=== PATIENT | female | born 1960 | race Caucasian/White ===

== ENCOUNTER 2016-07-12 08:29 | Emergency (ER) | payer MEDICAID, OTHER ==
[~2016-07-12] VITALS: Wt 69.0 kg
[~2016-07-12 08:29] MED LIST: CYCL-319 PO; IBUP800T25 PO
[2016-07-12] MEDS ORDERED: KETOROLAC 30 MG INJ IM STA (08:48)
--- NOTE | 2016-07-12 08:53 | ERD ---
ER Documentation Chief Complaint Date/Time DATE: 07/12/16 TIME: 08:50 Chief Complaint LOW BACK PAIN FOR THE PAST MONTH GETTING WORSE TODAY. HPI This is a 56-year-old female who presents the emergency department today complaining of back pain for the past month. Patient states she had back pain in the past a long time ago. States that she did go to physical therapy at one point and thinks that she may have had a problem at L4. States that she took Advil for the pain with no improvement in symptoms. States that the pain is so bad that she is having a hard time walking currently. Days of the pain also comes around to the front of her stomach into her groin area on both sides. Denies any fevers or chills, loss of bowel or bladder control. ROS All systems reviewed and are negative except as per history of present illness. Medications Home Meds Active Scripts Cyclobenzaprine Hcl* (Cyclobenzaprine Hcl*) 10 Mg Tablet, 5 MG PO TID for 5 Days , TAB Prov:MEGAN,ELIJAH C 02/03/15 Ibuprofen* (Motrin*) 800 Mg Tab, 800 MG PO Q6, #30 TAB Prov:MEGAN,ELIJAH C 02/03/15 Allergies Allergies: Coded Allergies: No Known Allergy (Unverified , 06/04/12) PMhx/Soc History of Surgery: No Anesthesia Reaction: No Hx Neurological Disorder: No Hx Respiratory Disorders: No Hx Cardiac Disorders: Yes (HTN) Hx Psychiatric Problems: No Hx Miscellaneous Medical Probl: No Hx Alcohol Use: No Hx Substance Use: No Hx Tobacco Use: No Physical Exam Vitals Vital Signs Date Time Temp Pulse Resp B/P Pulse Ox O2 Delivery O2 Flow Rate FiO2 07/12/16 08:31 98.6 88 20 126/65 98 Physical Exam Const: Mild distress Head: Atraumatic Eyes: Normal Conjunctiva ENT: Normal External Ears, Nose and Mouth. Neck: Full range of motion..~ No meningismus. Resp: Clear to auscultation bilaterally Cardio: Regular rate and rhythm, no murmurs Abd: Soft, non tender, non distended. Normal bowel sounds Skin: No petechiae or rashes Back: Lumbar spine midline tenderness and bilateral paraspinal tenderness. Positive straight leg raise right side. Pulses 2+. Distal neurovascularly intact Ext: No cyanosis, or edema Neur: Awake and alert Psych: Normal Mood and Affect Results 24 hrs Laboratory Tests Test 07/12/16 09:27 Bedside Urine pH (LAB) 5.5 Bedside Urine Protein (LAB) Negative Bedside Urine Glucose (UA) Negative Bedside Urine Ketones (LAB) Negative Bedside Urine Blood 1+ Bedside Urine Nitrite (LAB) Negative Bedside Urine Leukocyte Esterase (L Trace Current Medications Medications (Trade) Dose Ordered Sig/Cesario Route PRN Reason Start Time Stop Time Status Last Admin Dose Admin Ketorolac Tromethamine (Toradol) 30 mg ONCE STAT IM 07/12/16 08:48 07/12/16 08:50 DC 07/12/16 09:02 Prednisone (Prednisone) 60 mg ONCE ONCE PO 07/12/16 09:00 07/12/16 09:01 DC 07/12/16 09:01 DIAGNOSTIC IMAGING REPORT Patient: LUZ CHACON : 1960 Age: 56 Sex: F MR #: [id number] DOS: 07/12/16 0000 Ordering MD: SCOTTIE STERN PA-C Location: [facility] Room/Bed: PROCEDURE: XR Lumbar Spine. CLINICAL INDICATION: Lumbar spine pain. TECHNIQUE: AP, lateral, and cone-down lateral view of the lumbar spine were obtained. COMPARISON: No prior studies are available for comparison. FINDINGS: The alignment of the lumbar spine is within normal limits. There are anterior osteophytes from L2-S1 with mild narrowing of the intervertebral disc spaces at L3-4 and L5-S1. There are mild associated discogenic endplate changes at these levels. The vertebral body heights and marrow density are normal in appearance. There is moderate facet spondylosis at L5-S1 with suggestion of neural foraminal narrowing at this level. The remaining neural foramina appear patent. The paraspinal soft tissues unremarkable. There is no evidence of fracture. IMPRESSION: 1. Mild degenerative disc disease at L3-4 and L5-S1. 2. Moderate facet spondylosis at L5-S1 with suggestion of neural foraminal narrowing at this level. RPTAT: DD .Mustapha Mullins MD, MD Date Time Electronically viewed and signed by .Mustapha Mullins MD, on 07/12/2016 10: 05 .S/ CC: SCOTTIE STERN PA-C DIAGNOSTIC IMAGING REPORT Patient: LUZ CHACON : 1960 Age: 56 Sex: F MR #: [id number] DOS: 07/12/16 1120 Ordering MD: SHAISTA YING PA-C Location: [facility] Room/Bed: PROCEDURE: CT Abdomen and Pelvis without contrast. CLINICAL INDICATION: Pain for 1 month. TECHNIQUE: Multiple contiguous axial CT images of the abdomen and pelvis were obtained without the administration of intravenous contrast. Coronal and sagittal reconstructions were also performed. CTDIvol (mGy): 15.96; Total Exam DLP (mGy-cm): 959.61. One or more of the following dose reduction techniques were utilized: - Automated exposure control. - Adjustment of the mA and/or kV according to patient size. - Use of iterative reconstruction technique. COMPARISON: None. FINDINGS: Limited imaging of the lower thorax is unremarkable. The liver and spleen are homogeneous in density. The gallbladder, pancreas and adrenal glands are unremarkable. The kidneys are symmetric in size. There are no nephroureteral stones. There is no hydronephrosis or abnormal perinephric inflammation. There is a small simple cyst of the left kidney. The abdominal aorta is normal in caliber. There is no periaortic / retroperitoneal lymphadenopathy. The stomach and small and large intestines are unremarkable aside from scattered few diverticula within the distal colon. The appendix is not visualized. There are no focal inflammatory changes of the mesentery. There is no mesenteric lymphadenopathy. There is no ascites. The bladder is distended. The uterus is enlarged and globular in shape measuring approximately 9.6 x 7.4 x 9.0 cm. There is no free pelvic fluid. There is no pelvic sidewall or inguinal lymphadenopathy. Mild degenerative changes of the lumbar spine are observed. Body wall soft tissues are unremarkable. IMPRESSION: No evidence of abdominopelvic mass, lymphadenopathy or acute inflammatory pathology. Enlarged globular shaped uterus which can be seen with leiomyomatous disease or adenomyosis. Mild diverticulosis of the distal colon. No evidence of diverticulitis. RPTAT: HLST .Uzma Tavares MD, Date Time Electronically viewed and signed by .Uzma Tavares MD, on 07/12/2016 12:09 .T/ CC: SHAISTA YING PA-C Procedures/MDM This 56-year-old female who presents the emergency department today complaining of low back pain for the past month and worse since last night. Patient had a history of back problems in 2005. Given that patient is unable to walk and she does have some midline tenderness I did obtain images Per the radiology report images of the lumbar spine show mild degenerative disc disease at L3 and L4 and L5 and S1. There is moderate facet spondylosis L5 and S1 with suggestion of a neural foraminal narrowing at this level. There are anterior osteophytes from L2-S1. There is no evidence of fracture. Soft tissues are unremarkable This is likely the source of the patient's back pain.. Patient is afebrile and otherwise well-appearing. She has no loss of bowel or bladder control. Low suspicion for abscess or cauda equina. Patient given Toradol, prednisone here in the emergency department she does have some pain down her leg and this is likely sciatic related pain. Patient reported significant improvement in pain. I did also obtain a UA that showed trace leukocyte esterase and 1+ hematuria. Patient reported that she had one day of her menstrual cycle in June however she is not having her menses regularly. Given this information I spoke to Dr. Robles about the patient and he has recommended a CT scan of her abdomen and pelvis to rule out kidney stone. CT abdomen pelvis noncontrast shows no evidence of abdominal pelvic mass, lymphadenopathy or acute inflammatory pathology. There is an enlarged uterus which can be seen with adenomyosis or leiomyoma ptosis disease. There is mild diverticulosis of the distal colon there is no evidence of diverticulitis. There is no pelvic free fluid. There is no ascites. There are no nephroureteral stones. There is no hydronephrosis or abnormal perinephric inflammation. Patient symptoms at this time is consistent with back pain and abdominal pain. Patient has abdominal pain of uncertain etiology however it may be due to fibroids. Patient given a prescription for tramadol, Naprosyn, short course of prednisone for home. She is instructed to follow-up with primary care doctor was given information for community clinics as she will likely need referral to orthopedics and college specialist and [employer].. At this time the patient is stable for discharge and outpatient management. Patient should follow up with their PCP in the next 1-2 days. They may return to the emergency department sooner for any persistent or worsening of symptoms. Patient understood and agreed with the plan. SCOTTIE STERN PA-C July 12, 2016 08:53
[2016-07-12] MEDS ORDERED: predniSONE 20 MG TAB PO ONE (09:00)
[2016-07-12 09:25] LABS: URINE BLOOD (Dip) POC 1+ (NEGATIVE)
--- NOTE | 2016-07-12 10:05 | RADRPT ---
PROCEDURE: XR Lumbar Spine. CLINICAL INDICATION: Lumbar spine pain. TECHNIQUE: AP, lateral, and cone-down lateral view of the lumbar spine were obtained. COMPARISON: No prior studies are available for comparison. FINDINGS: The alignment of the lumbar spine is within normal limits. There are anterior osteophytes from L2-S 1 with mild narrowing of the intervertebral disc spaces at L3-4 and L5-S1. There are mild associate d discogenic endplate changes at these levels. The vertebral body heights and marrow density are nor mal in appearance. There is moderate facet spondylosis at L5-S1 with suggestion of neural foraminal narrowing at this level. The remaining neural foramina appear patent. The paraspinal soft tissues unremarkable. There is no evidence of fracture. IMPRESSION: 1. Mild degenerative disc disease at L3-4 and L5-S1. 2. Moderate facet spondylosis at L5-S1 with suggestion of neural foraminal narrowing at this level. RPTAT: DD .Mustapha Mullins MD, MD Date Time Electronically viewed and signed by .Mustapha Mullins MD, on 07/12/2016 10:05 .S/
--- NOTE | 2016-07-12 12:10 | RADRPT ---
PROCEDURE: CT Abdomen and Pelvis without contrast. CLINICAL INDICATION: Pain for 1 month. TECHNIQUE: Multiple contiguous axial CT images of the abdomen and pelvis were obtained without the administration of intravenous contrast. Coronal and sagittal reconstructions were also performed. CTDIvol (mGy): 15.96; Total Exam DLP (mGy-cm): 959.61. One or more of the following dose reduction techniques were utilized: - Automated exposure control. - Adjustment of the mA and/or kV according to patient size. - Use of iterative reconstruction technique. COMPARISON: None. FINDINGS: Limited imaging of the lower thorax is unremarkable. The liver and spleen are homogeneous in density. The gallbladder, pancreas and adrenal glands are u nremarkable. The kidneys are symmetric in size. There are no nephroureteral stones. There is no hydronephrosis o r abnormal perinephric inflammation. There is a small simple cyst of the left kidney. The abdominal aorta is normal in caliber. There is no periaortic / retroperitoneal lymphadenopathy. The stomach and small and large intestines are unremarkable aside from scattered few diverticula wit hin the distal colon. The appendix is not visualized. There are no focal inflammatory changes of t he mesentery. There is no mesenteric lymphadenopathy. There is no ascites. The bladder is distended. The uterus is enlarged and globular in shape measuring approximately 9.6 x 7.4 x 9.0 cm. There is no free pelvic fluid. There is no pelvic sidewall or inguinal lymphadenopa thy. Mild degenerative changes of the lumbar spine are observed. Body wall soft tissues are unremarkable. IMPRESSION: No evidence of abdominopelvic mass, lymphadenopathy or acute inflammatory pathology. Enlarged globular shaped uterus which can be seen with leiomyomatous disease or adenomyosis. Mild diverticulosis of the distal colon. No evidence of diverticulitis. RPTAT: HLST .Uzma Tavares MD, MD Date Time Electronically viewed and signed by .Uzma Tavares MD, MD on 07/12/2016 12:09 .T/
[2016-07-12] MEDS ORDERED: TRAM50TA2 PO (12:19)
[2016-07-12] MEDS ORDERED: NAPR-260 PO (12:20)
[2016-07-12] MEDS ORDERED: CYCL-319 PO (12:20)
[2016-07-12] MEDS ORDERED: PRED20TA PO (12:20)
== END 2016-07-12 12:34 | disposition home or self-care (01) ==
LOC: FTE 08:29
DX: M54.5 Low back pain (principal); I10 Essential (primary) hypertension
CPT/HCPCS: 72100; 74176; 81003; 96372; J1885; J7512; Z7502

== ENCOUNTER 2018-07-06 12:14 | Emergency (ER) | payer OTHER ==
[~2018-07-06] VITALS: Wt 81.2 kg
[~2018-07-06 12:14] MED LIST changes: +ATEN-51 PO; -CYCL-319 PO; -IBUP800T25 PO
[2018-07-06] MEDS ORDERED: IBUPROFEN 600 MG TAB PO ONE (14:00)
--- NOTE | 2018-07-06 15:19 | ERD ---
ER Documentation Chief Complaint Chief Complaint R knee pain x1yr; fell last PM w increased pain. brace in place; steady gai HPI 58-year-old female with chronic knee pain presents with complaint of acute right knee pain for 1 day. States that she was walking when she fell last night on her knee. States that there is pain in the knee as well as the lower right leg. States that the pain is worse with palpation. States that she is ambulatory but limping. She has been taking Advil. Last dose was last night. Denies any numbness or tingling. Denies any weakness. Denies any allergies. Denies medications. ROS All systems reviewed and are negative except as per history of present illness. Allergies Allergies: Coded Allergies: No Known Allergy (Unverified , 07/06/18) FmHx Family History: No diabetes, No coronary disease, No other Physical Exam Vitals Vital Signs Date Temp Pulse Resp B/P (MAP) Pulse Ox O2 O2 Flow FiO2 Time Delivery Rate 07/06/18 98.4 68 16 171/85 99 12:23 (113) Physical Exam Const: No acute distress Head: Atraumatic Eyes: Normal Conjunctiva ENT: Normal External Ears, Nose and Mouth. Neck: Full range of motion. No meningismus. Resp: Clear to auscultation bilaterally Cardio: Regular rate and rhythm, no murmurs Abd: Soft, non tender, non distended. Normal bowel sounds Skin: No petechiae or rashes Back: No midline or flank tenderness Ext: Right knee and upper tibula is tender to palpation. There is no edema, erythema, ecchymosis, or mina deformity noted. Overlying skin is intact. Compartments are soft and warm. There is no pallor or cyanosis. Range of motion, distal pulses, and distal sensation is intact. There is normal cap refill. Neur: Awake and alert Psych: Normal Mood and Affect Results 24 hrs Current Medications Medications Dose Sig/Cesario Start Time Status Last (Trade) Ordered Route PRN Stop Time Admin Dose Reason Admin Ibuprofen 600 mg ONCE ONCE 07/06/18 DC 07/06/18 (Motrin) PO 14:00 07/06/18 14:01 14:01 Procedures/MDM DIAGNOSTIC IMAGING REPORT Patient: LUZ HADLEY : 1960 Age: 58 Sex: F MR #: [id number] DOS: 07/06/18 1355 Ordering MD: FIDEL DELVALLE Location: [facility] Room/Bed: PROCEDURE: XR Knee. CLINICAL INDICATION: trauma, right knee pain TECHNIQUE: Three views of the right knee are available for review. COMPARISON: DR ROB 12/28/2017 FINDINGS: Bony mineralization within normal limits. No evidence of acute displaced fracture. Alignment is anatomic. No radiopaque or metallic foreign body identified. There is trace joint effusion. No focal abnormality identified in the overlying soft tissues on radiograph. IMPRESSION: No evidence of acute displaced fracture or malalignment. Trace joint effusion in the right knee joint. RPTAT: EE Physician Mehdi Date Time Electronically viewed and signed by Physician Mehdi on 07/06/2018 14:31 BP/ CC: FIDEL DELVALLE [id number] MDM: X-rays were taken and results within normal limits. Patient most likely suffering from contusion of the knee. Patient placed in knee immobilizer and given crutches. Patient given ibuprofen for pain. I have low suspicion for neurovascular compromise, compartment syndrome, fracture, osteomyelitis, septic joint, or other emergent condition. Patient discharged with strict ER precautions. Patient advised to follow up with PMD. All questions answered at discharge. Departure Diagnosis: Primary Impression: Knee injury Encounter type: initial encounter Laterality: right Qualified Codes: S89.91XA - Unspecified injury of right lower leg, initial encounter Additional Impression: Knee pain Chronicity: acute Laterality: right Qualified Codes: M25.561 - Pain in right knee Condition: Stable FIDEL DELVALLE July 06, 2018 15:19
[2018-07-06] MEDS ORDERED: IBUP-1542 PO (15:20)
== END 2018-07-06 16:07 | disposition home or self-care (01) ==
LOC: MERGE 12:14 → FTE 12:14
DX: S89.91XA Unspecified injury of right lower leg, initial encounter (principal); W18.39XA Other fall on same level, initial encounter; Y92.9 Unspecified place or not applicable
CPT/HCPCS: 29515; 73562; 73590; Z7502; Z7610

== ENCOUNTER 2018-11-07 08:13 | Emergency (ER) | payer OTHER ==
[~2018-11-07] VITALS: Ht 152.4 cm; Wt 80.0 kg
[~2018-11-07 08:13] MED LIST changes: +BACI28.34 TOP; +IBUP-1542 PO; +NAPR-985 PO
[2018-11-07 08:15] VITALS: BP 145/89; PULSE 92; RESP 16; Ht 152.4 cm; Wt 80.0 kg
[2018-11-07] MEDS ORDERED: LIDOCAINE 1% (MPF) 5 ML VIAL INJ ONE (09:00)
== END 2018-11-07 09:45 | disposition home or self-care (01) ==
LOC: FTE 08:13
DX: L60.0 Ingrowing nail (principal); I10 Essential (primary) hypertension
CPT/HCPCS: 11750; Z7502; Z7610